=== PATIENT | female | born 1970 | race Two or more races ===

== ENCOUNTER 2021-12-12 10:35 | Outpatient (CLI) | payer OTHER | END 2021-12-12 10:40 | disposition home or self-care (01) | LOC: MAMO-SONO 10:35 | PROVIDERS: ATTEND Obstetrics & Gynecology | DX: N63.12 Unspecified lump in the right breast, upper inner quadrant (principal); N63.21 Unspecified lump in the left breast, upper outer quadrant ==

== ENCOUNTER 2021-12-17 08:41 | Outpatient (CLI) | payer OTHER | END 2021-12-17 08:42 | disposition home or self-care (01) | LOC: LAB 08:41 | PROVIDERS: ATTEND Obstetrics & Gynecology | DX: E03.9 Hypothyroidism, unspecified (principal); N39.0 Urinary tract infection, site not specified; D50.9 Iron deficiency anemia, unspecified ==

== ENCOUNTER 2025-02-10 07:53 | Emergency (ER) | payer OTHER ==
[~2025-02-10] VITALS: Ht 170.2 cm; Wt 156.9 kg
[2025-02-10] MEDS ORDERED: 0.9 % SODIUM CHLORIDE 1,000 ML IV SCH (09:15)
[2025-02-10] MEDS ORDERED: KETOROLAC TROMETHAMINE 30 MG VIAL IV ONE (09:15)
[2025-02-10] MEDS ORDERED: FAMOTIDINE/PF 20 MG/2 ML VIAL IV ONE (09:15)
[2025-02-10] MEDS ORDERED: KETOROLAC TROMETHAMINE 30 MG VIAL ONE (09:20)
[2025-02-10] MEDS ORDERED: FAMOTIDINE/PF 20 MG/2 ML VIAL ONE (09:20)
[2025-02-10 10:02] LABS: BASO % 0.4 % (0.1-1.2); EOS # 0.02 (0.04-0.54); EOS % 0.2 % (0.7-7.0); LYMPH # 1.48 (1.18-3.74); LYMPH % 14.2 % (19.3-53.1); MEAN PLATELET VOLUME 10.60 fl (9.4-12.4); MONO # 0.66 (0.24-0.82); MONO % 6.3 % (4.7-12.5); NEUT # 8.21 (1.56-6.13); NEUT % 78.5 % (34.0-71.1); RED CELL DISTRIBUTION WIDTH 14.2 % (11.6-14.4)
[2025-02-10 10:07] LABS: ERYTHROCYTE SEDIMENTATION RATE 28 mm/hr (0-30)
[2025-02-10 10:22] LABS: INR 1.08
[2025-02-10 10:27] LABS: ALT/SGPT 55.0 U/L (12-78); AST/SGOT 31.0 U/L (15-37); BILIRUBIN TOTAL 2.08 mg/dL (0.3-1.2); BUN CREA RATIO 11.0 (7.0-25.0); CREATININE SERUM 0.87 mg/dL (0.55-1.02); GFR 67.35; GLOBULINA 3.7 G/DL (2.4-3.5); GLUCOSE FASTING 99.0 mg/dL (65-100); OSMOLALITY SERUM 288.0 MOSM/KG (275-295)
[2025-02-10 10:59] LABS: URINE APPEARANCE Cloudy; URINE BILIRRUBIN Negative (NEGATIVE); URINE BLOOD Trace; URINE COLOR Yellow; URINE GLUCOSE Negative (NEGATIVE); URINE KETONE Negative (NEGATIVE); URINE LEUKOCYTE Moderate; URINE NITRATE Positive; URINE UROBILINOGEN 1.0 E.U./dl
[2025-02-10 11:01] LABS: URINE EPITHELIAL CELLS 25.1 uL (0.0-38.8); URINE RBC 6.9 uL (0.0-20.8); URINE WBC 827.9 uL (0.0-23.2)
[2025-02-10 12:01] LABS: URINE BACTERIA > 9821.5 uL (0.0-1933); URINE CAST 1.27 uL (0.0-1.40); URINE PROTEIN 100 (NEGATIVE)
[2025-02-10] MEDS ORDERED: PEPCID20 MG PO (13:12)
[2025-02-10] MEDS ORDERED: PREPARATION H26 GM TD (13:12)
[2025-02-10] MEDS ORDERED: BACTRIM DS TAB1 EACH PO (13:12)
[2025-02-10] MEDS ORDERED: INTESTINEX680 M1 PO (13:12)
== END 2025-02-10 13:28 | disposition home or self-care (01) ==
LOC: ER 07:54
PROVIDERS: Student in an Organized Health Care Education/Training Program
DX: N39.0 Urinary tract infection, site not specified (principal); R16.2 Hepatomegaly with splenomegaly, not elsewhere classified; K76.0 Fatty (change of) liver, not elsewhere classified; Q63.2 Ectopic kidney; N20.0 Calculus of kidney; D17.71 Benign lipomatous neoplasm of kidney